=== PATIENT | male | born 1945 | race Caucasian/White ===

== ENCOUNTER 2018-12-14 08:50 | Day surgery (SDC) | payer MEDICARE ==
[~2018-12-14] VITALS: Ht 167.6 cm; Wt 67.0 kg
[2018-12-14] VITALS (10 sets, daily range): BP systolic 135–172; BP diastolic 71–101
[2018-12-14] MEDS ORDERED: diphenhydrAMINE 25mg capsule PO PRN (09:05)
[2018-12-14] MEDS ORDERED: normal saline 1,000 ML IV SCH (09:05)
[2018-12-14 09:27] LABS: BASOPHILS # (AUTO) 0.1 X10'3 (0-0.2); BASOPHILS % (AUTO) 0.8 % (0-1); EOSINOPHILS # (AUTO) 0.3 X10'3 (0-0.9); EOSINOPHILS % (AUTO) 3.8 % (0-6); HEMATOCRIT 48.1 % (42.0-52.0); HEMOGLOBIN 15.9 g/dl (14.0-17.9); LYMPHOCYTES # (AUTO) 1.4 X10'3 (1.1-4.8); LYMPHOCYTES % (AUTO) 19.8 % (21-51); MEAN CORPUSCULAR HEMOGLOBIN 31.9 PG (27.0-31.0); MEAN CORPUSCULAR HGB CONC 33.1 g/dL (33.0-36.5); MEAN CORPUSCULAR VOLUME 96.4 FL (78-98); MEAN PLATELET VOLUME 7.8 FL (7.4-10.4); MONOCYTES # (AUTO) 0.8 X10'3 (0-0.9); MONOCYTES % (AUTO) 10.4 % (2-12); NEUTROPHILS # (AUTO) 4.7 X10'3 (1.8-7.7); NEUTROPHILS % (AUTO) 65.2 % (42-75); PLATELET COUNT 325 X10'3 (140-440); RED BLOOD COUNT 4.98 X10'6 (4.70-6.10); RED CELL DISTRIBUTION WIDTH 13.6 % (11.5-14.5); WHITE BLOOD COUNT 7.2 X10'3 (4.5-11.0)
[2018-12-14 09:41] LABS: ALBUMIN 3.5 G/DL (3.4-5.0); ANION GAP 9 (8-16); BLOOD UREA NITROGEN 18 MG/DL (7-18); BUN/CREATININE RATIO 16.7 (5.4-32.0); CALCIUM 8.5 MG/DL (8.5-10.1); CHLORIDE 106 MMOL/L (99-107); CREATININE 1.08 MG/DL (0.60-1.10); GLUCOSE 86 MG/DL (70-104); MAGNESIUM 1.4 MG/DL (1.5-2.4); POTASSIUM 3.7 MMOL/L (3.5-5.1); SODIUM 142 MMOL/L (135-145); TOTAL CARBON DIOXIDE 27.5 MMOL/L (24-32); eGFR 67 ML/MIN
[2018-12-14] MEDS ORDERED: ASPI-1265 PO (10:02)
[2018-12-14] MEDS ORDERED: iohexol 350 MG/ML 50ML vial IV ONE (10:13)
[2018-12-14] MEDS ORDERED: LIDOcaine 1% (10mg/ml)w/preservative injection 20ml MDV ONE (10:13)
[2018-12-14] MEDS ORDERED: iohexol 350MG/ML 100ml bottle IV ONE (10:13)
[2018-12-14] MEDS ORDERED: midazolam 2 mg/2 ml injection ONE ×2 (10:41→11:08)
[2018-12-14] MEDS ORDERED: fentaNYL/PF 50MCG/1 ML 2ML syringe ONE (10:41)
[2018-12-14] MEDS ORDERED: ondansetron/PF 4mg/2ml inj IV PRN (12:15)
[2018-12-14] MEDS ORDERED: HYDROcodone/acetaminophen 10/325mg tab PO PRN (12:15)
[2018-12-14] MEDS ORDERED: proCHLORperazine 10 MG/2 ml inj IV PRN (12:15)
[2018-12-14] MEDS ORDERED: HYDROcodone/acetaminophen 5mg/325mg tablet PO PRN (12:15)
== END 2018-12-14 15:30 | disposition home or self-care (01) ==
LOC: SSTAY O 08:50
PROVIDERS: ATTEND Internal Medicine Cardiovascular Disease
DX: I25.10 Atherosclerotic heart disease of native coronary artery without angina pectoris (principal); F17.290 Nicotine dependence, other tobacco product, uncomplicated; Z79.82 Long term (current) use of aspirin; Z98.890 Other specified postprocedural states; Z72.89 Other problems related to lifestyle; Z79.899 Other long term (current) drug therapy
CPT/HCPCS: 36415; 80048; 83735; 85025; 85610; 93005; 93458; 99152; 99153; C1769; C1894; J1644; J2001; J2250; J3010; J7030; Q0163; Q9967; A4620; A6258; C1760